=== PATIENT | male | born 1970 | race Caucasian/White ===

== ENCOUNTER 2020-03-16 15:22 | Inpatient (IN) | payer MEDICARE, MEDICAID ==
[~2020-03-16] VITALS: Ht 177.8 cm; Wt 100.6 kg
[~2020-03-16 15:22] MED LIST: ATOR10TA84 PO; CARB200C7 PO; CHLO200T10 PO; GABA600T PO; HYDR25TA82 PO; OMEP20CA12 PO; RISP2TAB22 PO; TAMS0.4C32 PO; VENL-67 PO
[2020-03-16] MEDS ORDERED: QUEtiapine FUMARATE 100 MG TABLET PO PRN (17:15)
[2020-03-16] MEDS ORDERED: ZOLPIDEM TARTRATE 10 MG TABLET PO PRN (17:15)
[2020-03-16] MEDS ORDERED: CloNIDine HCL 0.1 MG TABLET PO PRN (19:45)
[2020-03-16] MEDS ORDERED: NICOTINE 14 MG/24 HOUR PATCH TD PRN (19:45)
[2020-03-16] MEDS ORDERED: LOPERAMIDE HCL 2 MG CAPSULE PO PRN (19:45)
[2020-03-16] MEDS ORDERED: MAG HYDROX/AL HYDROX/SIMETH ES 30 ML SUSPENSION UDCUP PO PRN (19:45)
[2020-03-16] MEDS ORDERED: GuaiFENesin/D-METHORPHAN [SUGAR-FREE] 200-20MG/10 ML SYRUP UDCUP PO PRN (19:45)
[2020-03-16] MEDS ORDERED: ACETAMINOPHEN 325 MG TABLET PO PRN (19:45)
[2020-03-16] MEDS ORDERED: ONDANSETRON HCL 4 MG TABLET PO PRN (19:45)
[2020-03-16] MEDS ORDERED: PETROLATUM,WHITE 28 GM JELLY TP PRN (19:45)
[2020-03-16] MEDS ORDERED: ALBUTEROL SULFATE HFA 90 MCG/PUFF 8 GM INHALER IH PRN (19:45)
[2020-03-16] MEDS: LORazepam 2 MG TABLET PO PRN (19:45)
[2020-03-16 19:46] VITALS: BP 147/82
[2020-03-16] MEDS: BACITRACIN 28.4 GM OINTMENT TP SCH (20:50)
[2020-03-16 20:54] VITALS: BP 113/66
[2020-03-17 05:36] VITALS: BP 127/79
[2020-03-17 08:07] VITALS: BP 116/72
[2020-03-17] MEDS: TERBINAFINE HCL 1% 30 GM CREAM TP SCH ×2 (09:00→16:27)
[2020-03-17] MEDS: BACITRACIN 28.4 GM OINTMENT TP SCH ×2 (10:08→16:27)
[2020-03-17] MEDS ORDERED: TAMS-13 PO (12:36)
[2020-03-17] MEDS ORDERED: GABA-1181 PO (12:36)
[2020-03-17] MEDS ORDERED: VENL-68 PO (12:36)
[2020-03-17] MEDS: ChlorproMAZINE HCL 50 MG TABLET PO SCH (13:38)
[2020-03-17] MEDS: MAGNESIUM HYDROXIDE SUSPENSION 30 ML UDCUP PO PRN (13:55)
[2020-03-17 16:01] VITALS: BP 129/78
[2020-03-17] MEDS: IBUPROFEN 400 MG TABLET PO PRN (16:16)
[2020-03-17] MEDS: LORazepam 2 MG TABLET PO PRN (18:20)
[2020-03-17] MEDS ORDERED: PERMETHRIN 1% 60 ML LOTION TP ONE (18:45)
[2020-03-17] MEDS ORDERED: PERMETHRIN 5% 60 GM CREAM TP ONE (20:30)
[2020-03-17] MEDS: ChlorproMAZINE HCL 25 MG TABLET PO SCH (20:31)
[2020-03-17] MEDS: HydrOXYzine PAMOATE 25 MG CAPSULE PO SCH (20:31)
[2020-03-17] MEDS: ATORVASTATIN CALCIUM 10 MG TABLET PO SCH (20:32)
[2020-03-18 00:18] VITALS: BP 120/72
[2020-03-18 08:22] VITALS: BP 131/74
[2020-03-18] MEDS: ChlorproMAZINE HCL 50 MG TABLET PO SCH (08:32)
[2020-03-18] MEDS: TAMSULOSIN HCL 0.4 MG CAPSULE PO SCH (08:32)
[2020-03-18] MEDS: OMEPRAZOLE 20 MG CAPSULE PO SCH (08:32)
[2020-03-18] MEDS: BACITRACIN 28.4 GM OINTMENT TP SCH ×2 (09:39→16:44)
[2020-03-18] MEDS: TERBINAFINE HCL 1% 30 GM CREAM TP SCH ×2 (09:40→16:44)
[2020-03-18] MEDS: MAGNESIUM HYDROXIDE SUSPENSION 30 ML UDCUP PO PRN (13:56)
[2020-03-18] MEDS: LORazepam 2 MG TABLET PO PRN (13:57)
[2020-03-18] MEDS: IBUPROFEN 400 MG TABLET PO PRN (13:58)
[2020-03-18 16:02] VITALS: BP 127/84
[2020-03-18] MEDS: ChlorproMAZINE HCL 25 MG TABLET PO SCH (20:11)
[2020-03-18] MEDS: HydrOXYzine PAMOATE 25 MG CAPSULE PO SCH (20:12)
[2020-03-18] MEDS: ATORVASTATIN CALCIUM 10 MG TABLET PO SCH (21:00)
[2020-03-19 07:01] VITALS: BP 113/87
[2020-03-19 08:54] VITALS: BP 117/66
[2020-03-19] MEDS: TAMSULOSIN HCL 0.4 MG CAPSULE PO SCH (09:08)
[2020-03-19] MEDS: ChlorproMAZINE HCL 50 MG TABLET PO SCH ×2 (09:09→20:06)
[2020-03-19] MEDS: BACITRACIN 28.4 GM OINTMENT TP SCH ×2 (09:09→16:42)
[2020-03-19] MEDS: TERBINAFINE HCL 1% 30 GM CREAM TP SCH ×2 (09:10→16:42)
[2020-03-19] MEDS: OMEPRAZOLE 20 MG CAPSULE PO SCH (10:28)
[2020-03-19] MEDS: LORazepam 2 MG TABLET PO PRN ×2 (12:53→20:09)
[2020-03-19] MEDS: MAGNESIUM HYDROXIDE SUSPENSION 30 ML UDCUP PO PRN (12:53)
[2020-03-19] MEDS: DOCUSATE SODIUM 100 MG CAPSULE PO PRN (16:41)
[2020-03-19 16:42] VITALS: BP 107/67
[2020-03-19] MEDS: IBUPROFEN 400 MG TABLET PO PRN (16:42)
[2020-03-19] MEDS: HydrOXYzine PAMOATE 25 MG CAPSULE PO SCH (20:06)
[2020-03-19] MEDS: ATORVASTATIN CALCIUM 10 MG TABLET PO SCH (21:00)
[2020-03-20 05:03] VITALS: BP 123/67
[2020-03-20 08:23] VITALS: BP 126/75
[2020-03-20] MEDS: OMEPRAZOLE 20 MG CAPSULE PO SCH (08:34)
[2020-03-20] MEDS: TAMSULOSIN HCL 0.4 MG CAPSULE PO SCH (08:34)
[2020-03-20] MEDS: ChlorproMAZINE HCL 50 MG TABLET PO SCH ×2 (08:34→20:34)
[2020-03-20 08:42] LABS: BASOPHILS % (AUTO) 1.1 % (0.0-2.0); EOSINOPHILS % (AUTO) 2.8 % (1.0-6.0); HEMATOCRIT 44.2 % (41-53); HEMOGLOBIN 15.2 g/dL (13.5-17.5); LYMPHOCYTES # (AUTO) 1.9 K/uL (1.0-4.8); LYMPHOCYTES % (AUTO) 33.8 % (22.0-44.0); MEAN CORPUSCULAR HEMOGLOBIN 30.6 pg (26.0-34.0); MEAN CORPUSCULAR HGB CONC 34.3 G/dL (31.0-37.0); MEAN CORPUSCULAR VOLUME 89 fL (80-100); MONOCYTES # (AUTO) 0.5 K/uL (0.1-1.0); MONOCYTES % (AUTO) 9.3 % (2.0-9.0); PLATELET COUNT (AUTO) 277 K/uL (150-450); RED BLOOD CELL COUNT(AUTO) 4.96 MIL/uL (4.50-5.90); RED CELL DISTRIBUTION WIDTH 14.3 % (11.5-14.5)
[2020-03-20 09:04] LABS: HEMOGLOBIN A1C 5.6 % (3.8-5.6)
[2020-03-20 09:19] LABS: APPEARANCE,URINE CLEAR (CLEAR); BILIRUBIN,URINE NEGATIVE (NEGATIVE); GLUCOSE, URINE (UA) NEGATIVE (NEGATIVE); KETONES,URINE NEGATIVE (NEGATIVE); LEUKOCYTE ESTERASE ,URINE NEGATIVE (NEGATIVE); NITRATE,URINE NEGATIVE (NEGATIVE); OCCULT BLOOD,URINE NEGATIVE (NEGATIVE); PH,URINE 7.5 (5.0-8.0); PROTEIN,URINE NEGATIVE (NEGATIVE); UROBILINOGEN,URINE 0.2 mg/dL (<=1.0)
[2020-03-20] MEDS: LORazepam 2 MG TABLET PO PRN ×2 (09:24→19:10)
[2020-03-20 09:25] LABS: ALANINE AMINOTRANSFERASE 28 U/L (12-78); ALKALINE PHOSPHATASE 64 U/L (46-116); ANION GAP 5 mmol/L (8-16); ASPARTATE AMINOTRANSFERASE 18 U/L (15-37); BILIRUBIN,TOTAL 0.4 mg/dL (0.1-1.0); CALCIUM, TOTAL 9.2 mg/dL (8.8-10.5); CARBON DIOXIDE 28 mmol/L (22-29); CHLORIDE 102 mmol/L (98-107); CHOL/HDL RATIO 5.7 (4.2-7.3); CHOLESTEROL 224 mg/dL (131-200); CREATININE 0.95 mg/dL (0.60-1.30); FREE T4 (FREE THYROXINE) 1.13 ng/dL (0.76-1.46); GLOMERULAR FILTR. RATE CALC > 60 mL/min (>60); GLUCOSE,RANDOM 87 mg/dL (70-110); HDL CHOLESTEROL 39 mg/dL (40-60); LDL CHOL (CALC.) 130 mg/dL (0-130); POTASSIUM 4.1 mmol/L (3.5-5.1); SODIUM SERUM 135 mmol/L (136-145); TOTAL PROTEIN, SERUM 7.7 g/dL (6.4-8.2); TRIGLYCERIDES 276 mg/dL (15-150); UREA NITROGEN, BLOOD 17 mg/dL (7-18)
[2020-03-20] MEDS: MAGNESIUM HYDROXIDE SUSPENSION 30 ML UDCUP PO PRN (09:25)
[2020-03-20] MEDS: TERBINAFINE HCL 1% 30 GM CREAM TP SCH ×2 (09:49→16:32)
[2020-03-20] MEDS: BACITRACIN 28.4 GM OINTMENT TP SCH ×2 (09:49→16:32)
[2020-03-20 16:06] VITALS: BP 114/73
[2020-03-20] MEDS: DOCUSATE SODIUM 100 MG CAPSULE PO PRN (18:45)
[2020-03-20] MEDS: ATORVASTATIN CALCIUM 10 MG TABLET PO SCH (20:34)
[2020-03-20] MEDS: HydrOXYzine PAMOATE 25 MG CAPSULE PO SCH (20:34)
[2020-03-21 00:58] VITALS: BP 112/60
[2020-03-21 08:05] VITALS: BP 115/64
[2020-03-21] MEDS: OMEPRAZOLE 20 MG CAPSULE PO SCH (08:55)
[2020-03-21] MEDS: TAMSULOSIN HCL 0.4 MG CAPSULE PO SCH (08:55)
[2020-03-21] MEDS: ChlorproMAZINE HCL 50 MG TABLET PO SCH (08:56)
[2020-03-21] MEDS: TERBINAFINE HCL 1% 30 GM CREAM TP SCH (08:56)
[2020-03-21] MEDS: BACITRACIN 28.4 GM OINTMENT TP SCH (08:57)
[2020-03-21 09:01] VITALS: BP 124/74
[2020-03-21] MEDS: MAGNESIUM HYDROXIDE SUSPENSION 30 ML UDCUP PO PRN (09:01)
[2020-03-21] MEDS: IBUPROFEN 400 MG TABLET PO PRN (09:01)
[2020-03-21] MEDS ORDERED: CHLO50TA41 PO ×2 (14:44)
[2020-03-21 16:08] VITALS: BP 137/81
== END 2020-03-21 16:50 | disposition home or self-care (01) | DRG 885 ==
LOC: EMS 15:22 → B2X 17:46
PROVIDERS: ADMIT Psychiatry & Neurology Child & Adolescent Psychiatry; ATTEND Psychiatry & Neurology Child & Adolescent Psychiatry
DX: F25.1 Schizoaffective disorder, depressive type (principal); R45.851 Suicidal ideations; E78.5 Hyperlipidemia, unspecified; N40.0 Benign prostatic hyperplasia without lower urinary tract symptoms; K21.9 Gastro-esophageal reflux disease without esophagitis; F10.10 Alcohol abuse, uncomplicated; G47.00 Insomnia, unspecified; J44.9 Chronic obstructive pulmonary disease, unspecified; Z87.891 Personal history of nicotine dependence
CPT/HCPCS: 83036; 84439; 84443

== ENCOUNTER 2020-04-11 19:47 | Inpatient (IN) | payer MEDICARE, MEDICAID ==
[~2020-04-11] VITALS: Ht 177.8 cm; Wt 97.6 kg
[~2020-04-11 19:47] MED LIST changes: -CARB200C7 PO; -CHLO200T10 PO; +CHLO50TA41 PO; -GABA600T PO; -RISP2TAB22 PO; +TAMS-13 PO; -TAMS0.4C32 PO; -VENL-67 PO
[2020-04-11 21:00] LABS: BASOPHILS % (AUTO) 0.5 % (0.0-2.0); EOSINOPHILS % (AUTO) 1.5 % (1.0-6.0); HEMOGLOBIN 14.6 g/dL (13.5-17.5); LYMPHOCYTES % (AUTO) 21.1 % (22.0-44.0); MEAN CORPUSCULAR HEMOGLOBIN 29.6 pg (26.0-34.0); MEAN CORPUSCULAR HGB CONC 33.3 G/dL (31.0-37.0); MEAN CORPUSCULAR VOLUME 89 fL (80-100); MONOCYTES # (AUTO) 0.8 K/uL (0.1-1.0); MONOCYTES % (AUTO) 8.3 % (2.0-9.0); NEUTROPHILS # (AUTO) 6.5 K/uL (1.8-7.7); NEUTROPHILS % (AUTO) 68.6 % (40.0-70.0); PLATELET COUNT (AUTO) 323 K/uL (150-450); RED BLOOD CELL COUNT(AUTO) 4.94 MIL/uL (4.50-5.90); RED CELL DISTRIBUTION WIDTH 13.9 % (11.5-14.5)
[2020-04-11 21:15] LABS: ANION GAP 12 mmol/L (8-16); CALCIUM, TOTAL 9.4 mg/dL (8.8-10.5); CARBON DIOXIDE 24 mmol/L (22-29); CHLORIDE 98 mmol/L (98-107); CREATININE 0.97 mg/dL (0.60-1.30); GLOMERULAR FILTR. RATE CALC > 60 mL/min (>60); GLUCOSE,RANDOM 108 mg/dL (70-110); POTASSIUM 3.7 mmol/L (3.5-5.1); SODIUM SERUM 134 mmol/L (136-145); UREA NITROGEN, BLOOD 16 mg/dL (7-18)
[2020-04-11 21:21] LABS: ALANINE AMINOTRANSFERASE 25 U/L (12-78); ALBUMIN 4.4 g/dL (3.4-5.0); ALKALINE PHOSPHATASE 67 U/L (46-116); ASPARTATE AMINOTRANSFERASE 22 U/L (15-37); BILIRUBIN,TOTAL 0.7 mg/dL (0.1-1.0); TOTAL PROTEIN, SERUM 8.2 g/dL (6.4-8.2)
[2020-04-11] MEDS ORDERED: ZOLPIDEM TARTRATE 10 MG TABLET PO PRN (22:15)
[2020-04-12 00:30] VITALS: BP 124/70
[2020-04-12 02:18] LABS: APPEARANCE,URINE CLEAR (CLEAR); BILIRUBIN,URINE NEGATIVE (NEGATIVE); GLUCOSE, URINE (UA) NEGATIVE (NEGATIVE); KETONES,URINE NEGATIVE (NEGATIVE); LEUKOCYTE ESTERASE ,URINE NEGATIVE (NEGATIVE); NITRATE,URINE NEGATIVE (NEGATIVE); OCCULT BLOOD,URINE NEGATIVE (NEGATIVE); PH,URINE 5.5 (5.0-8.0); PROTEIN,URINE NEGATIVE (NEGATIVE); UROBILINOGEN,URINE 0.2 mg/dL (<=1.0)
[2020-04-12 02:21] LABS: AMPHET/METH SCREEN,URINE POSITIVE (NEGATIVE); BARBITURATE SCREEN, URINE NEGATIVE (NEGATIVE); BENZODIAZEPINES SCREEN,URINE POSITIVE (NEGATIVE); CANNABINOID SCREEN,URINE NEGATIVE (NEGATIVE); COCAINE SCREEN,URINE NEGATIVE (NEGATIVE); METHADONE SCREEN, URINE NEGATIVE (NEGATIVE); OPIATE SCREEN,URINE NEGATIVE (NEGATIVE)
[2020-04-12 02:25] LABS: PHENCYCLIDINE SCREEN,URINE NEGATIVE (NEGATIVE)
[2020-04-12 06:50] VITALS: BP 115/63
[2020-04-12] MEDS: LORazepam 2 MG TABLET PO PRN ×2 (06:59→12:18)
[2020-04-12] MEDS ORDERED: ACETAMINOPHEN 325 MG TABLET PO PRN ×2 (07:15→07:45)
[2020-04-12] MEDS ORDERED: IBUPROFEN 400 MG TABLET PO PRN (07:45)
[2020-04-12] MEDS ORDERED: NICOTINE 14 MG/24 HOUR PATCH TD PRN (07:45)
[2020-04-12] MEDS ORDERED: MAG HYDROX/AL HYDROX/SIMETH ES 30 ML SUSPENSION UDCUP PO PRN (07:45)
[2020-04-12] MEDS ORDERED: CloNIDine HCL 0.1 MG TABLET PO PRN (07:45)
[2020-04-12] MEDS ORDERED: MAGNESIUM HYDROXIDE SUSPENSION 30 ML UDCUP PO PRN (07:45)
[2020-04-12] MEDS ORDERED: ALBUTEROL SULFATE HFA 90 MCG/PUFF 8 GM INHALER IH PRN (07:45)
[2020-04-12] MEDS ORDERED: PETROLATUM,WHITE 28 GM JELLY TP PRN (07:45)
[2020-04-12] MEDS ORDERED: ONDANSETRON HCL 4 MG TABLET PO PRN (07:45)
[2020-04-12] MEDS ORDERED: LOPERAMIDE HCL 2 MG CAPSULE PO PRN (07:45)
[2020-04-12] MEDS ORDERED: DOCUSATE SODIUM 100 MG CAPSULE PO PRN (07:45)
[2020-04-12] MEDS ORDERED: GuaiFENesin/D-METHORPHAN [SUGAR-FREE] 200-20MG/10 ML SYRUP UDCUP PO PRN (07:45)
[2020-04-12 08:00] VITALS: BP 121/61
[2020-04-12] MEDS ORDERED: HydrOXYzine PAMOATE 25 MG CAPSULE PO PRN (10:45)
[2020-04-12 17:10] VITALS: BP 125/64
[2020-04-12 17:52] LABS: APPEARANCE,URINE CLEAR (CLEAR); BILIRUBIN,URINE NEGATIVE (NEGATIVE); GLUCOSE, URINE (UA) NEGATIVE (NEGATIVE); KETONES,URINE NEGATIVE (NEGATIVE); LEUKOCYTE ESTERASE ,URINE NEGATIVE (NEGATIVE); NITRATE,URINE NEGATIVE (NEGATIVE); OCCULT BLOOD,URINE NEGATIVE (NEGATIVE); PROTEIN,URINE NEGATIVE (NEGATIVE); UROBILINOGEN,URINE 0.2 mg/dL (<=1.0)
[2020-04-12] MEDS ORDERED: ChlorproMAZINE HCL 50 MG TABLET PO SCH ×2 (21:00)
[2020-04-13] MEDS ORDERED: ChlorproMAZINE HCL 25 MG TABLET PO SCH ×2 (09:00)
== END 2020-04-12 17:25 | disposition short-term general hospital (02) | DRG 885 ==
LOC: EMS 19:47 → UNDOADMIN 22:00 → 3EX 22:00 → UNDODISIN 04-12 17:25
PROVIDERS: ATTEND Psychiatry & Neurology Child & Adolescent Psychiatry
DX: F20.9 Schizophrenia, unspecified (principal); F15.23 Other stimulant dependence with withdrawal; E87.1 Hypo-osmolality and hyponatremia; R45.851 Suicidal ideations; J44.9 Chronic obstructive pulmonary disease, unspecified; E78.5 Hyperlipidemia, unspecified; N40.0 Benign prostatic hyperplasia without lower urinary tract symptoms; Z59.0 Homelessness; Z87.891 Personal history of nicotine dependence; F41.9 Anxiety disorder, unspecified; K21.9 Gastro-esophageal reflux disease without esophagitis; Z88.8 Allergy status to other drugs, medicaments and biological substances
CPT/HCPCS: 87081; G0378; G0480

== ENCOUNTER 2020-09-11 12:14 | Emergency (ER) | payer MEDICARE, OTHER ==
[~2020-09-11] VITALS: Ht 177.8 cm; Wt 100.0 kg
[~2020-09-11 12:14] MED LIST changes: -ATOR10TA84 PO; +CHLO25TA47 PO; +HYDR-4031 PO; -HYDR25TA82 PO; -OMEP20CA12 PO; -TAMS-13 PO
[2020-09-11 12:19] VITALS: BP 125/64
[2020-09-11] MEDS ORDERED: FLUORESCEIN SODIUM 1 MG STRIP ONE (23:29)
== END 2020-09-11 15:41 | disposition left against medical advice (07) ==
LOC: EMS 12:23
DX: Z04.6 Encounter for general psychiatric examination, requested by authority (principal); Z53.21 Procedure and treatment not carried out due to patient leaving prior to being seen by health care provider
CPT/HCPCS: Z7610

== ENCOUNTER 2020-10-02 11:59 | Inpatient (IN) | payer MEDICARE, MEDICAID ==
[~2020-10-02] VITALS: Ht 177.8 cm; Wt 93.8 kg
[2020-10-02] MEDS ORDERED: OLANZapine 5 MG RAPDIS TABLET PO PRN (15:00)
[2020-10-02] MEDS ORDERED: ZOLPIDEM TARTRATE 10 MG TABLET PO PRN (15:00)
[2020-10-02] MEDS ORDERED: INFLUENZA VIRUS VACCINE QVS 2020-21 (6MO+)/PF 60 MCG/0.5 ML SYRINGE IM ONE (18:45)
[2020-10-02 19:24] VITALS: BP 128/63
[2020-10-02] MEDS: LORazepam 2 MG TABLET PO PRN (20:55)
[2020-10-02] MEDS ORDERED: IBUPROFEN 600 MG TABLET PO PRN (21:30)
[2020-10-02] MEDS ORDERED: BENZOCAINE/MENTHOL LOZENGE PO PRN (21:30)
[2020-10-02] MEDS ORDERED: OMEPRAZOLE 20 MG CAPSULE PO PRN (21:30)
[2020-10-02] MEDS ORDERED: CloNIDine HCL 0.1 MG TABLET PO PRN (21:30)
[2020-10-02] MEDS ORDERED: MAGNESIUM HYDROXIDE SUSPENSION 30 ML UDCUP PO PRN (21:30)
[2020-10-02] MEDS ORDERED: ALBUTEROL SULFATE HFA 90 MCG/PUFF 8 GM INHALER IH PRN (21:30)
[2020-10-02] MEDS ORDERED: PETROLATUM,WHITE 28 GM JELLY TP PRN (21:30)
[2020-10-02] MEDS ORDERED: BACITRACIN 28 GM OINTMENT TP PRN (21:30)
[2020-10-02] MEDS ORDERED: DOCUSATE SODIUM 100 MG CAPSULE PO PRN (21:30)
[2020-10-02] MEDS ORDERED: ONDANSETRON HCL 4 MG TABLET PO PRN (21:30)
[2020-10-02] MEDS ORDERED: LOPERAMIDE HCL 2 MG CAPSULE PO PRN (21:30)
[2020-10-02] MEDS ORDERED: MAG HYDROX/AL HYDROX/SIMETH ES 30 ML SUSPENSION UDCUP PO PRN (21:30)
[2020-10-02] MEDS: ChlorproMAZINE HCL 50 MG TABLET PO SCH (21:49)
[2020-10-03] MEDS ORDERED: PNEUMOCOCCAL VACCINE POLYVALENT 0.5 ML VIAL [PPSV23] IM ONE (00:45)
[2020-10-03 06:29] VITALS: BP 132/70
[2020-10-03 07:57] LABS: BASOPHILS % (AUTO) 0.7 % (0.0-2.0); EOSINOPHILS % (AUTO) 2.2 % (1.0-6.0); HEMATOCRIT 41.5 % (41-53); HEMOGLOBIN 13.8 g/dL (13.5-17.5); LYMPHOCYTES % (AUTO) 27.5 % (22.0-44.0); MEAN CORPUSCULAR HEMOGLOBIN 29.9 pg (26.0-34.0); MEAN CORPUSCULAR HGB CONC 33.2 G/dL (31.0-37.0); MEAN CORPUSCULAR VOLUME 90 fL (80-100); MONOCYTES # (AUTO) 0.8 K/uL (0.1-1.0); MONOCYTES % (AUTO) 10.7 % (2.0-9.0); NEUTROPHILS # (AUTO) 4.3 K/uL (1.8-7.7); NEUTROPHILS % (AUTO) 58.9 % (40.0-70.0); PLATELET COUNT (AUTO) 331 K/uL (150-450); RED BLOOD CELL COUNT(AUTO) 4.61 MIL/uL (4.50-5.90); RED CELL DISTRIBUTION WIDTH 14.7 % (11.5-14.5)
[2020-10-03 08:02] LABS: HEMOGLOBIN A1C 5.3 % (3.8-5.6)
[2020-10-03 08:17] LABS: ALANINE AMINOTRANSFERASE 23 U/L (12-78); ALBUMIN 3.2 g/dL (3.4-5.0); ALKALINE PHOSPHATASE 60 U/L (46-116); ANION GAP 8 mmol/L (8-16); ASPARTATE AMINOTRANSFERASE 30 U/L (15-37); BILIRUBIN,TOTAL 0.3 mg/dL (0.1-1.0); CALCIUM, TOTAL 8.7 mg/dL (8.8-10.5); CARBON DIOXIDE 27 mmol/L (22-29); CHLORIDE 103 mmol/L (98-107); CHOL/HDL RATIO 5.2 (4.2-7.3); CHOLESTEROL 156 mg/dL (131-200); CREATININE 0.82 mg/dL (0.60-1.30); FREE T4 (FREE THYROXINE) 1.25 ng/dL (0.76-1.46); GLOMERULAR FILTR. RATE CALC > 60 mL/min (>60); GLUCOSE,RANDOM 97 mg/dL (70-110); HDL CHOLESTEROL 30 mg/dL (40-60); LDL CHOL (CALC.) 64 mg/dL (0-130); POTASSIUM 4.1 mmol/L (3.5-5.1); SODIUM SERUM 138 mmol/L (136-145); THYROID STIMULATING HORMONE 1.97 uIU/mL (0.36-3.74); TOTAL PROTEIN, SERUM 6.8 g/dL (6.4-8.2); TRIGLYCERIDES 309 mg/dL (15-150); UREA NITROGEN, BLOOD 18 mg/dL (7-18)
[2020-10-03] MEDS: ChlorproMAZINE HCL 25 MG TABLET PO SCH (09:45)
[2020-10-03] MEDS: HydrOXYzine PAMOATE 25 MG CAPSULE PO SCH ×2 (09:45→16:57)
[2020-10-03] MEDS: BACITRACIN 28 GM OINTMENT TP SCH ×2 (09:45→16:57)
[2020-10-03] MEDS ORDERED: TAMSULOSIN HCL 0.4 MG CAPSULE PO ONE (13:30)
[2020-10-03] MEDS ORDERED: CEPHALEXIN MONOHYDRATE 500 MG CAPSULE PO ONE (17:30)
[2020-10-03] MEDS: ChlorproMAZINE HCL 50 MG TABLET PO SCH (20:26)
[2020-10-03] MEDS: ATORVASTATIN CALCIUM 10 MG TABLET PO SCH (20:26)
[2020-10-04] MEDS: CEPHALEXIN MONOHYDRATE 500 MG CAPSULE PO SCH ×3 (09:01→16:28)
[2020-10-04] MEDS: ChlorproMAZINE HCL 25 MG TABLET PO SCH (09:01)
[2020-10-04] MEDS: HydrOXYzine PAMOATE 25 MG CAPSULE PO SCH ×2 (09:01→16:28)
[2020-10-04] MEDS: BACITRACIN 28 GM OINTMENT TP SCH ×2 (09:01→16:29)
[2020-10-04] MEDS: ACETAMINOPHEN 325 MG TABLET PO PRN (19:41)
[2020-10-04] MEDS: ChlorproMAZINE HCL 50 MG TABLET PO SCH (20:32)
[2020-10-04] MEDS: ATORVASTATIN CALCIUM 10 MG TABLET PO SCH (20:32)
[2020-10-05] VITALS: BP 116/74
[2020-10-05] MEDS: ChlorproMAZINE HCL 25 MG TABLET PO SCH (08:54)
[2020-10-05] MEDS: HydrOXYzine PAMOATE 25 MG CAPSULE PO SCH ×2 (08:54→16:33)
[2020-10-05] MEDS: CEPHALEXIN MONOHYDRATE 500 MG CAPSULE PO SCH ×3 (08:54→16:33)
[2020-10-05] MEDS: BACITRACIN 28 GM OINTMENT TP SCH ×2 (08:55→16:33)
[2020-10-05 09:00] VITALS: BP 132/80
[2020-10-05] MEDS: LORazepam 2 MG TABLET PO PRN (13:22)
[2020-10-05 16:12] VITALS: BP 125/80
[2020-10-05] MEDS: ChlorproMAZINE HCL 50 MG TABLET PO SCH (20:27)
[2020-10-05] MEDS: ATORVASTATIN CALCIUM 10 MG TABLET PO SCH (20:28)
[2020-10-06 04:24] VITALS: BP 120/62
[2020-10-06] MEDS: HydrOXYzine PAMOATE 25 MG CAPSULE PO SCH (08:18)
[2020-10-06] MEDS: CEPHALEXIN MONOHYDRATE 500 MG CAPSULE PO SCH (08:18)
[2020-10-06] MEDS: ChlorproMAZINE HCL 25 MG TABLET PO SCH (08:18)
[2020-10-06] MEDS ORDERED: AMYL1CAP62 PO (10:47)
[2020-10-06] MEDS ORDERED: CEPH-582 PO (10:49)
[2020-10-06] MEDS ORDERED: ATOR10TA84 PO (10:49)
[2020-10-06] MEDS: ACETAMINOPHEN 325 MG TABLET PO PRN (10:58)
[2020-10-06] MEDS: BACITRACIN 28 GM OINTMENT TP SCH (11:00)
[2020-10-06] MEDS ORDERED: AMYLASE/LIPASE/PROTEASE 60/12/38 MU DR CAPSULE PO SCH (11:30)
[2020-10-07] MEDS ORDERED: OMEGA-3/DHA/EPA/FISH OIL 1,000 MG CAPSULE PO SCH (09:00)
== END 2020-10-06 11:25 | disposition home or self-care (01) | DRG 885 ==
LOC: B2X 18:13
PROVIDERS: ADMIT Psychiatry & Neurology Psychiatry; ATTEND Psychiatry & Neurology Psychiatry
DX: F20.0 Paranoid schizophrenia (principal); E78.5 Hyperlipidemia, unspecified; N40.0 Benign prostatic hyperplasia without lower urinary tract symptoms; F41.9 Anxiety disorder, unspecified; K59.00 Constipation, unspecified; G47.00 Insomnia, unspecified; F17.200 Nicotine dependence, unspecified, uncomplicated; F19.10 Other psychoactive substance abuse, uncomplicated; Z88.8 Allergy status to other drugs, medicaments and biological substances
CPT/HCPCS: 83036; 84436; 84439; 84443; 86592; 87081

== ENCOUNTER 2020-11-01 09:26 | Inpatient (IN) | payer MEDICARE, MEDICAID ==
[~2020-11-01] VITALS: Ht 177.8 cm; Wt 90.7 kg
[~2020-11-01 09:26] MED LIST changes: +AMYL1CAP62 PO; +ATOR10TA84 PO; +CEPH-582 PO
[2020-11-01] MEDS ORDERED: FluPHENAZine HCL 10 MG TABLET PO ONE (11:30)
[2020-11-01] MEDS ORDERED: LORazepam 1 MG TABLET PO ONE (11:30)
[2020-11-01 12:05] LABS: BASOPHILS % (AUTO) 0.9 % (0.0-2.0); EOSINOPHILS % (AUTO) 2.2 % (1.0-6.0); HEMATOCRIT 40.8 % (41-53); HEMOGLOBIN 13.4 g/dL (13.5-17.5); LYMPHOCYTES # (AUTO) 1.7 K/uL (1.0-4.8); LYMPHOCYTES % (AUTO) 37.6 % (22.0-44.0); MEAN CORPUSCULAR HEMOGLOBIN 29.8 pg (26.0-34.0); MEAN CORPUSCULAR HGB CONC 32.9 G/dL (31.0-37.0); MEAN CORPUSCULAR VOLUME 90 fL (80-100); MONOCYTES # (AUTO) 0.4 K/uL (0.1-1.0); MONOCYTES % (AUTO) 9.3 % (2.0-9.0); NEUTROPHILS # (AUTO) 2.2 K/uL (1.8-7.7); PLATELET COUNT (AUTO) 277 K/uL (150-450); RED BLOOD CELL COUNT(AUTO) 4.52 MIL/uL (4.50-5.90); RED CELL DISTRIBUTION WIDTH 14.5 % (11.5-14.5)
[2020-11-01 12:14] LABS: ANION GAP 8 mmol/L (8-16); CALCIUM, TOTAL 8.6 mg/dL (8.8-10.5); CARBON DIOXIDE 27 mmol/L (22-29); CHLORIDE 105 mmol/L (98-107); CREATININE 0.91 mg/dL (0.60-1.30); GLOMERULAR FILTR. RATE CALC > 60 mL/min (>60); GLUCOSE,RANDOM 75 mg/dL (70-110); POTASSIUM 3.8 mmol/L (3.5-5.1); SODIUM SERUM 140 mmol/L (136-145); UREA NITROGEN, BLOOD 8 mg/dL (7-18)
[2020-11-01 12:18] LABS: ALANINE AMINOTRANSFERASE 20 U/L (12-78); ALBUMIN 3.6 g/dL (3.4-5.0); ALKALINE PHOSPHATASE 59 U/L (46-116); ASPARTATE AMINOTRANSFERASE 15 U/L (15-37); BILIRUBIN,TOTAL 0.2 mg/dL (0.1-1.0); TOTAL PROTEIN, SERUM 6.7 g/dL (6.4-8.2)
[2020-11-01 14:26] LABS: COVID AG,FIA SOURCE NASOPHARYNGEAL
[2020-11-01] MEDS ORDERED: ZOLPIDEM TARTRATE 10 MG TABLET PO PRN (16:45)
[2020-11-01] MEDS ORDERED: INFLUENZA VIRUS VACCINE QVS 2020-21 (6MO+)/PF 60 MCG/0.5 ML SYRINGE IM ONE (17:00)
[2020-11-01] MEDS: LORazepam 2 MG TABLET PO PRN (18:45)
[2020-11-02] MEDS: AMYLASE/LIPASE/PROTEASE 60/12/38 MU DR CAPSULE PO SCH ×2 (06:43→16:59)
[2020-11-02] MEDS ORDERED: MAGNESIUM HYDROXIDE SUSPENSION 30 ML UDCUP PO PRN (06:45)
[2020-11-02] MEDS ORDERED: LOPERAMIDE HCL 2 MG CAPSULE PO PRN (06:45)
[2020-11-02] MEDS ORDERED: OMEPRAZOLE 20 MG CAPSULE PO PRN (06:45)
[2020-11-02] MEDS ORDERED: MAG HYDROX/AL HYDROX/SIMETH ES 30 ML SUSPENSION UDCUP PO PRN (06:45)
[2020-11-02] MEDS ORDERED: PETROLATUM,WHITE 28 GM JELLY TP PRN (06:45)
[2020-11-02] MEDS ORDERED: ACETAMINOPHEN 325 MG TABLET PO PRN (06:45)
[2020-11-02] MEDS ORDERED: DOCUSATE SODIUM 100 MG CAPSULE PO PRN (06:45)
[2020-11-02] MEDS ORDERED: ALBUTEROL SULFATE HFA 90 MCG/PUFF 8 GM INHALER IH PRN (06:45)
[2020-11-02] MEDS ORDERED: BACITRACIN 28 GM OINTMENT TP PRN (06:45)
[2020-11-02] MEDS ORDERED: BENZOCAINE/MENTHOL LOZENGE PO PRN (06:45)
[2020-11-02] MEDS ORDERED: ONDANSETRON HCL 4 MG TABLET PO PRN (06:45)
[2020-11-02] MEDS ORDERED: CloNIDine HCL 0.1 MG TABLET PO PRN (06:45)
[2020-11-02 16:25] VITALS: BP 113/64
[2020-11-02] MEDS: FluPHENAZine HCL 5 MG TABLET PO SCH (20:28)
[2020-11-02] MEDS ORDERED: ChlorproMAZINE HCL 50 MG TABLET PO SCH (21:00)
[2020-11-03] MEDS: AMYLASE/LIPASE/PROTEASE 60/12/38 MU DR CAPSULE PO SCH ×2 (06:44→16:17)
[2020-11-03 08:02] VITALS: BP 116/64
[2020-11-03] MEDS: HydrOXYzine PAMOATE 25 MG CAPSULE PO SCH (08:11)
[2020-11-03] MEDS ORDERED: ChlorproMAZINE HCL 25 MG TABLET PO SCH (09:00)
[2020-11-03 09:44] VITALS: BP 120/74
[2020-11-03] MEDS: IBUPROFEN 600 MG TABLET PO PRN (09:44)
[2020-11-03] MEDS: LORazepam 2 MG TABLET PO PRN (13:57)
[2020-11-03 16:03] VITALS: BP 124/74
[2020-11-03] MEDS ORDERED: LIPA1CAP18 PO (19:13)
[2020-11-03] MEDS: FluPHENAZine HCL 5 MG TABLET PO SCH (20:02)
[2020-11-04 06:20] VITALS: BP 120/72
[2020-11-04] MEDS: AMYLASE/LIPASE/PROTEASE 60/12/38 MU DR CAPSULE PO SCH ×2 (06:43→16:30)
[2020-11-04 08:11] VITALS: BP 120/72
[2020-11-04] MEDS: HydrOXYzine PAMOATE 25 MG CAPSULE PO SCH (08:52)
[2020-11-04] MEDS: LORazepam 2 MG TABLET PO PRN ×2 (08:55→19:27)
[2020-11-04 19:19] VITALS: BP 125/73
[2020-11-04] MEDS: IBUPROFEN 600 MG TABLET PO PRN (19:21)
[2020-11-04] MEDS: FluPHENAZine HCL 10 MG TABLET PO SCH (20:35)
[2020-11-05] MEDS: AMYLASE/LIPASE/PROTEASE 60/12/38 MU DR CAPSULE PO SCH ×2 (06:52→16:38)
[2020-11-05] MEDS: HydrOXYzine PAMOATE 25 MG CAPSULE PO SCH (08:05)
[2020-11-05 08:11] VITALS: BP 111/63
[2020-11-05 16:03] VITALS: BP 138/81
[2020-11-05] MEDS: LORazepam 2 MG TABLET PO PRN (17:17)
[2020-11-05] MEDS: FluPHENAZine HCL 10 MG TABLET PO SCH (20:29)
[2020-11-06] MEDS: AMYLASE/LIPASE/PROTEASE 60/12/38 MU DR CAPSULE PO SCH (06:41)
[2020-11-06 08:09] VITALS: BP 124/60
[2020-11-06] MEDS: HydrOXYzine PAMOATE 25 MG CAPSULE PO SCH (08:37)
[2020-11-06] MEDS: IBUPROFEN 600 MG TABLET PO PRN (08:41)
[2020-11-06] MEDS ORDERED: AMYL1CAP62 PO (09:36)
[2020-11-06] MEDS ORDERED: HYDR-4031 PO (09:37)
[2020-11-06] MEDS ORDERED: FLUP10TA13 PO (09:39)
== END 2020-11-06 14:58 | disposition home or self-care (01) | DRG 885 ==
LOC: EMS 09:34 → B2X 15:44
PROVIDERS: ADMIT Psychiatry & Neurology Psychiatry; ATTEND Psychiatry & Neurology Psychiatry
DX: F20.0 Paranoid schizophrenia (principal); R45.851 Suicidal ideations; E78.5 Hyperlipidemia, unspecified; F31.9 Bipolar disorder, unspecified; N40.0 Benign prostatic hyperplasia without lower urinary tract symptoms; F41.9 Anxiety disorder, unspecified; Z88.8 Allergy status to other drugs, medicaments and biological substances; Z20.822 Contact with and (suspected) exposure to COVID-19; G47.00 Insomnia, unspecified; F17.210 Nicotine dependence, cigarettes, uncomplicated; K59.00 Constipation, unspecified
CPT/HCPCS: 87426; 90686; G0480

== ENCOUNTER 2024-03-17 17:09 | Emergency (ER) | payer MEDICARE, OTHER ==
[~2024-03-17] VITALS: Ht 177.8 cm; Wt 105.0 kg
[~2024-03-17 17:09] MED LIST changes: -ATOR10TA84 PO; -CEPH-582 PO; -CHLO25TA47 PO; -CHLO50TA41 PO; +CHLO50TA61 PO; -HYDR-4031 PO; +HYDR-4808 PO; +SIMV-259 PO; +TAMS0.4C94 PO; +TOLN133P TP
[2024-03-17 17:13] VITALS: BP 120/56; PULSE 86; RESP 18; TEMP 98
[2024-03-17 17:38] LABS: COVID AG,FIA SOURCE NASAL SWAB
[2024-03-17 18:29] LABS: INFLUENZA TYPE A NEGATIVE FOR TYPE A (NEGATIVE); INFLUENZA TYPE B NEGATIVE FOR TYPE B (NEGATIVE); SARS-COV2 (COVID) ANTIGEN,FIA Negative (Negative)
[2024-03-17 18:57] LABS: BASOPHILS % (AUTO) 0.9 % (0.0-2.0); EOSINOPHILS % (AUTO) 1.8 % (1.0-6.0); HEMATOCRIT 43.4 % (41-53); HEMOGLOBIN 14.8 g/dL (13.5-17.5); LYMPHOCYTES # (AUTO) 1.5 K/uL (1.0-4.8); LYMPHOCYTES % (AUTO) 23.1 % (22.0-44.0); MEAN CORPUSCULAR HEMOGLOBIN 30.7 pg (26.0-34.0); MEAN CORPUSCULAR HGB CONC 34.2 G/dL (31.0-37.0); MEAN CORPUSCULAR VOLUME 90 fL (80-100); MONOCYTES # (AUTO) 0.8 K/uL (0.1-1.0); MONOCYTES % (AUTO) 12.1 % (2.0-9.0); NEUTROPHILS # (AUTO) 4.1 K/uL (1.8-7.7); NEUTROPHILS % (AUTO) 62.1 % (40.0-70.0); PLATELET COUNT (AUTO) 266 K/uL (150-450); RED BLOOD CELL COUNT(AUTO) 4.83 MIL/uL (4.50-5.90); RED CELL DISTRIBUTION WIDTH 14.2 % (11.5-14.5); WHITE BLOOD COUNT (AUTO) 6.5 K/uL (4.5-11.0)
[2024-03-17 19:06] LABS: CREATININE 1.29 mg/dL (0.60-1.30); POTASSIUM 3.4 mmol/L (3.5-5.1)
[2024-03-17] MEDS: ACETAMINOPHEN 500 MG TABLET PO ONE (22:38)
[2024-03-17] MEDS: BENZONATATE 100 MG CAPSULE PO ONE (22:38)
[2024-03-17] MEDS ORDERED: BENZ-227 PO (23:04)
== END 2024-03-18 01:18 | disposition home or self-care (01) ==
LOC: EMS 17:10
DX: R05.9 Cough, unspecified (principal); R51.9 Headache, unspecified; F41.9 Anxiety disorder, unspecified; F31.9 Bipolar disorder, unspecified; F20.9 Schizophrenia, unspecified; F17.210 Nicotine dependence, cigarettes, uncomplicated; Z98.890 Other specified postprocedural states; Z88.8 Allergy status to other drugs, medicaments and biological substances; Z20.822 Contact with and (suspected) exposure to COVID-19
CPT/HCPCS: 71045; 80048; 85025; 87804; 99284; 36415-L1; 36415-TC